=== PATIENT | female | born 1985 | race Two or more races ===

== ENCOUNTER 2017-09-21 18:41 | Emergency (ER) | payer MEDICAID ==
[~2017-09-21] VITALS: Ht 152.4 cm; Wt 43.1 kg
[~2017-09-21 18:41] MED LIST: IBUPROFEN600 MG ORAL; KEFLEX500 M1 GT
[2017-09-21 19:03] VITALS: BP 107/74
--- NOTE | 2017-09-21 19:44 | Emergency Room Report ---
History of Present Illness General Chief Complaint: Skin Rash/Abscess Source: Patient Present Illness HPI 32-year-old female presents to the emergency department complaining of 8 out of 10 in severity localized pain, swelling and erythema to the right side of the vaginal labia over the course of 2 days. Patient reports that she was seen at a clinic and was referred to the emergency department for evaluation. Patient states that initially she did not have any discharge however when she was at the clinic they stated that it appears that is currently draining. Patient denies fevers, chills. Pain is exacerbated upon palpation. She denies dysuria , other lesions in the vaginal area, swollen tender lymph nodes, joint pain. Patient denies history of STDs. Denies CP, Palpitations, LOC, AMS, dizziness, Changes in Vision, Sensation, paresthesias, or a sudden severe headache. She denies abdominal pain. She states she has been using hot compresses at home which she did not think was providing much relief. Allergies: Coded Allergies: NO KNOWN DRUG ALLERGIES (Unverified Allergy, Unknown, 09/10/14) Patient History Past Medical History: see triage record Past Surgical History: none Pertinent Family History: none Last Menstrual Period: 08/03/17 Now: No Immunizations: UTD Reviewed Nursing Documentation: PMH: Agreed; PSxH: Agreed Nursing Documentation-PMH Past Medical History: No Stated History Review of Systems All Other Systems: negative except mentioned in HPI Physical Exam Vital Signs Date Time Temp Pulse Resp B/P (MAP) Pulse Ox O2 Delivery O2 Flow Rate FiO2 09/21/17 18:51 99.6 108 16 107/74 97 Room Air 99.7 Sp02 EP Interpretation: reviewed, normal General Appearance: no apparent distress, alert, GCS 15, non-toxic Head: normocephalic, atraumatic Eyes: bilateral eye normal inspection, bilateral eye PERRL ENT: hearing grossly normal, normal voice Neck: full range of motion Respiratory: lungs clear, normal breath sounds, speaking full sentences Cardiovascular #1: regular rate, rhythm Gastrointestinal: non tender, soft Rectal: deferred Genitourinary: no CVA tenderness, adnexa normal, bladder normal, other - Vaginal abscess that is draining on its own, it is 2cm in size right lower labia. NO LAD Musculoskeletal: back normal, gait/station normal, normal range of motion, non- tender Neurologic: alert, oriented x3, responsive, motor strength/tone normal, sensory intact, speech normal, grossly normal Psychiatric: judgement/insight normal Skin: no rash, warm/dry, well hydrated, other - Vaginal abscess that is draining on its own, it is 2cm in size right lower labia Lymphatic: no adenopathy Medical Decision Making PA Attestation Dr. rodriguez is my supervising Physician whom patient management has been discussed with. Diagnostic Impression: Primary Impression: Discharging abscess of vagina ER Course 32-year-old female presents to the emergency department complaining of 8 out of 10 in severity localized pain, swelling and erythema to the right side of the vaginal labia over the course of 2 days. Patient reports that she was seen at a clinic and was referred to the emergency department for evaluation. Patient states that initially she did not have any discharge however when she was at the clinic they stated that it appears that is currently draining. Patient denies fevers, chills. Pain is exacerbated upon palpation. She denies dysuria , other lesions in the vaginal area, swollen tender lymph nodes, joint pain. Patient denies history of STDs. Denies CP, Palpitations, LOC, AMS, dizziness, Changes in Vision, Sensation, paresthesias, or a sudden severe headache. She denies abdominal pain. She states she has been using hot compresses at home which she did not think was providing much relief. Ddx considered but are not limited to cellulitis, abscess, Bartholin's cyst, STD just to name a few. Vital signs: are WNL, pt. is afebrile H&PE are most consistent with Vaginal abscess that is draining on its own, it is 2cm in size right lower labia. ORDERS: none required at this time, the diagnosis is clinical ED INTERVENTIONS: - D/w pt. that since it is Draining on its own it would be least invasive to put her on antibiotics and to continue warm compresses to facilitate the drainage. Discussed with patient that if she has worsening of her symptoms to return to the ED and at that point we will most likely consider incising. At this time it is fluctuant a very small it is not tense and I feel we can manage this conservatively with oral antibiotics and close outpatient follow-up. She verbalized her understanding and agreement with this treatment plan DISCHARGE: At this time pt. is stable for d/c to home. Will provide printed patient care instructions, and any necessary prescriptions. Care plan and follow up instructions have been discussed with the patient prior to discharge. Last Vital Signs Date Time Temp Pulse Resp B/P (MAP) Pulse Ox O2 Delivery O2 Flow Rate FiO2 09/21/17 19:03 99.7 106 16 107/74 97 Room Air 99.7 Disposition: HOME, SELF-CARE Condition: Stable Scripts Ibuprofen* (MOTRIN*) 600 Mg Tablet 600 MG ORAL THREE TIMES A DAY, #20 TAB 0 Refills Prov: Priscilla Kramer 09/21/17 Hydrocodone Bit/Acetaminophen 5-325* (NORCO 5-325*) 1 Each Tablet 1 TAB ORAL Q6H PRN for For Pain, #9 TAB 0 Refills Prov: Priscilla Kramre 09/21/17 Clindamycin Hcl (CLINDAMYCIN HCL) 300 Mg Capsule 300 MG ORAL FOUR TIMES A DAY for 7 Days, #28 CAP Prov: Priscilla Kramer 09/21/17 Referrals: [facility] (PCP) Patient Instructions: Abscess Additional Instructions: Take medications as directed. Follow up with a Primary Care Provider in 3-5 days, even if your symptoms have resolved. --Please review list of primary care clinics, if you do not already have a primary care provider Return sooner to ED if new symptoms occur, or current symptoms become worse. Do not drink alcohol, drive, or operate heavy machinery while taking [place] as this may cause drowsiness. - Please note that this Emergency Department Report was dictated using [email or web address] teacher technology software, occasionally this can lead to erroneous entry secondary to interpretation by the dictation equipment. Priscilla Kramer Sep 21, 2017 19:44
[2017-09-21] MEDS ORDERED: Fluconazole 100mg tab ORAL ONE (19:45)
[2017-09-21] MEDS ORDERED: Norco 5mg/325mg tab ORAL ONE (19:45)
[2017-09-21] MEDS ORDERED: IBUPROFEN600 MG ORAL (20:04)
[2017-09-21] MEDS ORDERED: CLINDAMYCIN HC300 MG ORAL (20:04)
[2017-09-21] MEDS ORDERED: NORCO 5-325 TA1 EACH ORAL (20:04)
[2017-09-21 20:30] VITALS: BP 112/70
[2017-09-21 20:31] VITALS: BP 112/70
== END 2017-09-21 20:31 | disposition home or self-care (01) ==
LOC: EMR 19:33
DX: N76.0 Acute vaginitis (principal)
CPT/HCPCS: 99284

== ENCOUNTER 2017-10-25 18:49 | Emergency (ER) | payer MEDICAID ==
[~2017-10-25] VITALS: Ht 152.4 cm; Wt 43.1 kg
[~2017-10-25 18:49] MED LIST changes: +CLINDAMYCIN HC300 MG ORAL; +NORCO 5-325 TA1 EACH ORAL
[2017-10-25] MEDS ORDERED: NKM (19:12)
[2017-10-25 19:26] VITALS: BP 117/63
--- NOTE | 2017-10-25 19:49 | Emergency Room Report ---
History of Present Illness General Chief Complaint: Abdominal Pain Source: Patient Present Illness HPI 32-year-old female patient presents ER complaining of diarrhea for the past 2 weeks. Patient reports diarrhea symptoms began following beginning to take under my syndrome abscess. Patient reports she also eats"lots of spicy foods" .. Patient denies fever, chest pain, abdominal pain. Patient denies recent travel outside states. Patient denies blood in stool. Patient denies contacts with similar symptoms. Patient denies vomiting. as dysuria, hematuria. Patient reports currently on menstrual period. patient also complains of cough, reports intermittent and dry. Denies hemoptysis. Denies history of asthma. Denies shortness of breath. reports has been able to eat without difficulty. Allergies: Coded Allergies: NO KNOWN DRUG ALLERGIES (Unverified Allergy, Unknown, 09/10/14) Patient History Past Medical History: see triage record Last Menstrual Period: now Now: No Reviewed Nursing Documentation: PMH: Agreed; PSxH: Agreed Nursing Documentation-PMH Past Medical History: No Stated History Review of Systems All Other Systems: negative except mentioned in HPI Physical Exam Vital Signs Date Time Temp Pulse Resp B/P (MAP) Pulse Ox O2 Delivery O2 Flow Rate FiO2 10/25/17 19:07 98.1 77 16 117/63 98 Room Air 98.1 Sp02 EP Interpretation: reviewed, normal General Appearance: well appearing, no apparent distress, alert, GCS 15, non- toxic Head: normocephalic, atraumatic Eyes: bilateral eye normal inspection, bilateral eye PERRL ENT: hearing grossly normal, normal pharynx, no angioedema, normal voice, uvula midline, moist mucus membranes Neck: full range of motion Respiratory: lungs clear, normal breath sounds, no rhonchi, no respiratory distress, no accessory muscle use, no wheezing, speaking full sentences Cardiovascular #1: regular rate, rhythm, no edema Gastrointestinal: non tender, soft, no mass, non-distended, no guarding, no rebound, other - negative Rovsing, negative obturator, negative Romano Genitourinary: no CVA tenderness Musculoskeletal: back normal, digits/nails normal, gait/station normal, normal range of motion, non-tender Neurologic: alert, oriented x3, responsive, motor strength/tone normal, sensory intact Psychiatric: mood/affect normal Medical Decision Making PA Attestation Dr. Love is my supervising Physician whom patient management has been discussed with. Diagnostic Impression: Primary Impression: Diarrhea Additional Impression: Cough ER Course Pt. presents to the ED c/o vomiting and diarrhea. Ddx considered but are not limited to viral syndrome, gastritis, enteritis, medication use. Vital signs: are WNL, pt. is afebrile at discharge. ORDERS: none required at this time, the diagnosis is clinical ED COURSE: physical exam benign, no tenderness palpation on distraction, negative Rovsing, negative Romano, negative obturator, negative heel tap. do not believe patient requires labs or imaging at this time. Patient informed symptoms likely related to recent antibiotic use. instructed patient to take probiotics and remain hydrated. Informed patient main concern with diarrhea is dehydration. No fever, no blood in stool, informed patient that she does not require further antibiotic treatment at this time for diarrhea, may worsen symptoms of diarrhea. No signs of dehydration, moist mucus membranes. Patient reports eating and drinking normally. ER precautions given, return ER for new or worsening of symptoms including but not limited to intractable vomiting, bloody diarrhea, chest pain, shortness of breath, abdominal pain follow-up with primary care provider and request referral to GI specialist. consult Dr. Love, agrees with treatment and plan. lungs clear to auscultation, no wheezes rhonchi or rales. Informed patient will provide her with cough medication, patient declined, medication at this time. Patient not, in ER. DISCHARGE: No rx required at this time. Patient instructed on BRAT diet. Patient instructed to remain hydrated, drink plenty of fluids. Patient questions asked and answered. Patient states understanding and agreement to treatment plan. At this time pt. is stable for d/c to home. Patient is resting comfortably, laughing, in no acute distress, nontoxic appearing, talking without difficulty. Will provide printed patient care instructions, and any necessary prescriptions. Care plan and follow up instructions have been discussed with the patient prior to discharge. Patient instructed to followup with PCP in 3-5 days. Patient reports understanding and agreement to treatment plan. Patient questions asked and answered. ER precautions given; patient instructed to return to ER for new or worsening of symptoms including but not limited to fever, intractable vomiting, severe abdominal pain, blood in stool. - Please note that this Emergency Department Report was dictated using [employer] professional technology software, occasionally this can lead to erroneous entry secondary to interpretation by the dictation equipment. Last Vital Signs Date Time Temp Pulse Resp B/P (MAP) Pulse Ox O2 Delivery O2 Flow Rate FiO2 10/25/17 19:26 98.1 77 16 117/63 98 Room Air 98.1 Disposition: HOME, SELF-CARE Condition: Stable Patient Instructions: Diarrhea, Adult, [id number] Additional Instructions: Followup with primary care provider in 3 -5 days. Request referral to GI specialist. Take probiotics. Avoid spicy foods, avoid dairy foods. BRAT diet: bananas, rice, apple sauce, toast. Take medications as directed. Patient questions asked and answered. ER precautions given, patient instructed to return to ER immediately for any new or worsening of symptoms cleaning but not limited to intractable vomiting, abdominal pain, chest pain, shortness breath. Kennedy Dickens October 25, 2017 19:49
[2017-10-25 19:54] VITALS: BP 117/63
== END 2017-10-25 19:54 | disposition home or self-care (01) ==
LOC: EMR 19:30
DX: R19.7 Diarrhea, unspecified (principal); R05 Cough
CPT/HCPCS: 99282

== ENCOUNTER 2018-03-11 12:44 | Emergency (ER) | payer MEDICAID ==
[~2018-03-11] VITALS: Ht 152.4 cm; Wt 44.9 kg
[~2018-03-11 12:44] MED LIST changes: +NKM
[2018-03-11] MEDS ORDERED: NAPROXEN SODIU220 M2 PO (12:59)
[2018-03-11 13:00] VITALS: BP 107/75
[2018-03-11] MEDS ORDERED: IBUPROFEN600 MG ORAL (13:38)
[2018-03-11] MEDS ORDERED: ROBAXIN-750750 MG PO (13:38)
[2018-03-11 13:54] VITALS: BP 109/73
--- NOTE | 2018-03-11 20:40 | Emergency Room Report ---
History of Present Illness General Chief Complaint: Pain Source: Patient Present Illness HPI To the patient is a 32-year-old female presenting for arm numbness. This occurred approximately 3 days prior. Numbness is primarily felt from the right shoulder to the right wrist. The symptoms have improved from the start. She has had this several times with unknown cause. She denies any injury. She does admit to sleeping with her right arm bent at an abnormal angle. She denies other symptoms including nausea, vomiting, fever, chills, shortness of breath, chest pain Allergies: Coded Allergies: NO KNOWN DRUG ALLERGIES (Unverified Allergy, Unknown, 09/10/14) Patient History Past Medical History: see triage record Pertinent Family History: none Now: No Reviewed Nursing Documentation: PMH: Agreed; PSxH: Agreed Nursing Documentation-PMH Past Medical History: No History, Except For Hx Cardiac Problems: No - anemia Review of Systems All Other Systems: negative except mentioned in HPI Physical Exam Vital Signs Date Time Temp Pulse Resp B/P (MAP) Pulse Ox O2 Delivery O2 Flow Rate FiO2 03/11/18 12:55 97.5 69 17 108/72 98 Room Air 97.5 Sp02 EP Interpretation: reviewed, normal General Appearance: no apparent distress, alert, GCS 15, non-toxic Head: normocephalic, atraumatic Eyes: bilateral eye normal inspection, bilateral eye PERRL Neck: normal inspection, no bony tend, tender lateral - R Musculoskeletal: normal inspection, digits/nails normal, normal range of motion Neurologic: alert, oriented x3, responsive, motor strength/tone normal, sensory intact, speech normal Psychiatric: judgement/insight normal, memory normal, mood/affect normal, no suicidal/homicidal ideation Skin: normal color, no rash, warm/dry, well hydrated Lymphatic: no adenopathy Medical Decision Making PA Attestation Dr. Maciel is my supervising physician. Patient management was discussed with my supervising physician Diagnostic Impression: Primary Impression: Muscle strain Additional Impression: Neuropathy ER Course To the patient is a 32-year-old female presenting for arm numbness. Differential diagnosis considered but not limited to: Muscle spasm, anxiety, disc herniation, ACS, among others PE: vitals WNL. NAD Neck: TTP over R lateral paraspinal muscles. No midline tenderness. Full AROM intact RRR. Lungs CTA bilat Upper ext strength 5/5 bilat. SILT EKG and CXR unremarkable. Pt is given prescription for muscle relaxer and pain med. Sleeping position discussed. F/U with PMD for further eval ISMAEL. ER precautions given Laboratory Tests Test 03/11/18 13:25 Urine HCG, Qualitative Negative (NEGATIVE) Lab Results Impression neg preg EKG Diagnostic Results EP Interpretation: NSR. No acute changes Rate: normal - 62 ST Segments: no acute changes ASA given to the pt in ED: No PA Scribe Text EKG reviewed with supervising physician Chest X-Ray Diagnostic Results Chest X-Ray Diagnostic Results : Chest X-Ray Ordered: Yes # of Views/Limited/Complete: 1 View Indication: Other - numbness EP Interpretation: Yes PA Xray: Interpretation reviewed, by supervising MD, and agrees with findings. Interpretation: no consolidation, no effusion, no pneumothorax, no acute cardiopulmonary disease Impression: No acute disease Electronically Signed by: Kaden Marshall PA-C Last Vital Signs Date Time Temp Pulse Resp B/P (MAP) Pulse Ox O2 Delivery O2 Flow Rate FiO2 03/11/18 12:55 97.5 69 17 108/72 98 Room Air 97.5 Status: improved Disposition: HOME, SELF-CARE Condition: Improved Scripts Methocarbamol* (ROBAXIN-750*) 750 Mg Tablet 750 MG PO TID, #21 TAB 0 Refills Prov: KADEN MARSHALLAJavier 03/11/18 Ibuprofen* (MOTRIN*) 600 Mg Tablet 600 MG ORAL Q8H PRN for For Pain, #30 TAB 0 Refills Prov: KADEN MARSHALL 03/11/18 Patient Instructions: Peripheral Neuropathy Additional Instructions: I discussed my findings with the patient. All questions and concerns have been answered. Treatment and medication compliance have been addressed. I advised the patient that they need to follow up with PMD in 3-5 days. Return to ED if symptoms worsen, new symptoms arise such as chest pain, or if needed for any reason. Patient verbalized understanding of discharge instructions. KADEN MARSHALL Mar 11, 2018 20:40
--- NOTE | 2018-03-12 10:57 | Diagnostic Imaging Report ---
Indication: Chest pain Comparison: None A single view chest radiograph was obtained. Findings: Cardiomediastinal appearance is within normal limits for age. The lungs are clear. Pulmonary vascularity is appropriate. The diaphragmatic contour is smooth and costophrenic angles are sharp. No pleural effusions are identified. The bones are unremarkable. Impression: No acute findings
--- NOTE | 2018-03-12 14:43 | Cardiology Report ---
APPROVED REPORT EKG Measurement Heart [id number] Normal sinus rhythm Normal ECG
== END 2018-03-11 13:54 | disposition home or self-care (01) ==
LOC: EMR 13:20
DX: S46.911A Strain of unspecified muscle, fascia and tendon at shoulder and upper arm level, right arm, initial encounter (principal); X58.XXXA Exposure to other specified factors, initial encounter; Y92.9 Unspecified place or not applicable; G62.9 Polyneuropathy, unspecified
CPT/HCPCS: 71045; 81025; 93005; 99283

== ENCOUNTER 2019-01-03 06:49 | Emergency (ER) | payer MEDICAID ==
[~2019-01-03] VITALS: Ht 152.4 cm; Wt 49.4 kg
[~2019-01-03 06:49] MED LIST changes: +NAPROXEN SODIU220 M2 PO; +ROBAXIN-750750 MG PO
[2019-01-03 07:10] VITALS: BP 105/56
--- NOTE | 2019-01-03 07:10 | NUR ---
ED Nurse Note: pt walked in to ED due to abdominal pain aw n/v/d since yesterday. per pt, no new drug or raw food intake. watery stool yesterday. no fever or chills reported. AAO x4. respirations even and non-labored noted. skin warm to touch. no open wound noted. on monitor technician. will wait for the further order.
--- NOTE | 2019-01-03 07:18 | Emergency Room Report ---
History of Present Illness General Chief Complaint: Nausea, Vomiting, and Diarrhea Source: Patient Present Illness HPI 33-year-old female presents with nausea vomiting, diarrhea, and abdominal cramps that started 5 days prior to arrival, she states the symptoms are improving however they continue to persist they started after she went out with some friends for mimosas in [place] she denies any fevers, she does endorse some chills, she endorses the pain is achy in nature, moderate severity diffuse abdominal cramps that come and go no aggravating or alleviating factors. Patient presents for evaluation Allergies: Coded Allergies: NO KNOWN DRUG ALLERGIES (Unverified Allergy, Unknown, 09/10/14) Patient History Past Medical History: see triage record Last Menstrual Period: 12/15/18 Now: No Reviewed Nursing Documentation: PMH: Agreed; PSxH: Agreed Nursing Documentation-PMH Past Medical History: No Stated History Hx Cardiac Problems: No - anemia Review of Systems Constitutional: Reports: chills; Denies: fever Eye: Denies: blurred vision, double vision ENT: Denies: throat pain, nasal discharge Respiratory: Denies: cough, shortness of breath Cardiovascular: Denies: chest pain, palpitations Gastrointestinal: Reports: abdominal pain, diarrhea, nausea, vomiting Genitourinary: Denies: dysuria, pain Musculoskeletal: Denies: back pain, muscle pain Skin: Denies: rash, lesions Neurological: Denies: headache, focal weakness Hematologic/Lymphatic: Denies: easy bleeding, easy bruising All Other Systems: negative except mentioned in HPI Physical Exam Vital Signs Date Time Temp Pulse Resp B/P (MAP) Pulse Ox O2 Delivery O2 Flow Rate FiO2 01/03/19 07:05 97.9 78 18 99/63 (75) 98 Room Air Sp02 EP Interpretation: reviewed, normal General Appearance: well appearing, no apparent distress, alert Head: normocephalic, atraumatic Eyes: bilateral eye PERRL, bilateral eye EOMI ENT: uvula midline, moist mucus membranes Neck: supple, thyroid normal, supple/symm/no masses Respiratory: lungs clear, no respiratory distress, no retraction, no accessory muscle use Cardiovascular #1: normal peripheral pulses, regular rate, rhythm, no edema, no gallop, no murmur Gastrointestinal: non tender, soft, no guarding, no rebound Musculoskeletal: normal inspection Neurologic: alert, oriented x3 Psychiatric: mood/affect normal Skin: no rash, warm/dry Medical Decision Making Diagnostic Impression: Primary Impression: Nausea, vomiting, and diarrhea Additional Impression: Abdominal pain ER Course 33-year-old female presents with 5 days of nausea vomiting and diarrhea, low suspicion for appendicitis, diverticulitis, high suspicion for infectious gastro enteritis, patient's abdomen is soft, nontender, no rebound no guarding, will order fluids, labs, to evaluate for severity of depletion patient is tolerating p.o. Patient with a contaminated urine, patient counseled patient, will call patient if urine turns positive. Disposition home with return precautions Laboratory Tests Test 01/03/19 07:41 White Blood Count 4.5 K/UL (4.8-10.8) L Red Blood Count 4.56 M/UL (4.20-5.40) Hemoglobin 13.8 G/DL (12.0-16.0) Hematocrit 40.6 % (37.0-47.0) Mean Corpuscular Volume 89 FL (80-99) Mean Corpuscular Hemoglobin 30.3 PG (27.0-31.0) Mean Corpuscular Hemoglobin Concent 34.0 G/DL (32.0-36.0) Red Cell Distribution Width 11.7 % (11.6-14.8) Platelet Count 98 K/UL (150-450) L Mean Platelet Volume 13.3 FL (6.5-10.1) H Neutrophils (%) (Auto) % (45.0-75.0) Lymphocytes (%) (Auto) % (20.0-45.0) Monocytes (%) (Auto) % (1.0-10.0) Eosinophils (%) (Auto) % (0.0-3.0) Basophils (%) (Auto) % (0.0-2.0) Neutrophils % (Manual) Pending Lymphocytes % (Manual) Pending Platelet Estimate Pending Platelet Morphology Pending Urine Color Pale yellow Urine Appearance Slightly cloudy Urine pH 6 (4.5-8.0) Urine Specific Felda 1.020 (1.005-1.035) Urine Protein 1+ (NEGATIVE) H Urine Glucose (UA) Negative (NEGATIVE) Urine Ketones Negative (NEGATIVE) Urine Blood 1+ (NEGATIVE) H Urine Nitrite Negative (NEGATIVE) Urine Bilirubin Negative (NEGATIVE) Urine Urobilinogen Normal MG/DL (0.0-1.0) Urine Leukocyte Esterase 3+ (NEGATIVE) H Urine RBC 2-4 /HPF (0 - 2) H Urine WBC Tntc /HPF (0 - 2) H Urine Squamous Epithelial Cells Many /LPF (NONE/OCC) H Urine Bacteria Few /HPF (NONE) Urine HCG, Qualitative Negative (NEGATIVE) Sodium Level 140 MMOL/L (136-145) Potassium Level 4.3 MMOL/L (3.5-5.1) Chloride Level 105 MMOL/L (98-107) Carbon Dioxide Level 31 MMOL/L (21-32) Anion Gap 4 mmol/L (5-15) L Blood Urea Nitrogen 12 mg/dL (7-18) Creatinine 0.9 MG/DL (0.55-1.30) Estimate Glomerular Filtration Rate > 60 mL/min (>60) Glucose Level 94 MG/DL (74-106) Calcium Level 8.8 MG/DL (8.5-10.1) Total Bilirubin 0.5 MG/DL (0.2-1.0) Aspartate Amino Transferase (AST) 22 U/L (15-37) Alanine Aminotransferase (ALT) 30 U/L (12-78) Alkaline Phosphatase 90 U/L (46-116) Total Protein 7.7 G/DL (6.4-8.2) Albumin 3.9 G/DL (3.4-5.0) Globulin 3.8 g/dL Albumin/Globulin Ratio 1.0 (1.0-2.7) Lipase 168 U/L (73-393) Human Chorionic Gonadotropin, Quant Pending Lab Results Impression Contaminated urine, will await culture results Rhythm Strip Diag. Results Rhythm Strip Time: 07:33 EP Interpretation: yes Rate: 64 Rhythm: NSR Last Vital Signs Date Time Temp Pulse Resp B/P (MAP) Pulse Ox O2 Delivery O2 Flow Rate FiO2 01/03/19 07:05 97.9 78 18 99/63 (75) 98 Room Air Disposition: HOME, SELF-CARE Condition: Improved Scripts Ondansetron Odt* (ZOFRAN ODT*) 4 Mg Tab.rapdis 4 MG BC EVERY 8 HOURS PRN for Nausea & Vomiting, #15 TAB 0 Refills Prov: Tito Purcell MD 01/03/19 Referrals: [facility]) [facility] Patient Instructions: Diarrhea, Adult, [id number], Rehydration, Adult, Thrombocytopenia, Iedy-[id number], Viral Gastroenteritis, Adult, [id number] Additional Instructions: The patient was provided with discharge instructions, notified to follow-up with a primary care doctor and or specialist in the next 24-48 hours, and to return to the ED if they have worsening of their symptoms. Please note that this report is being documented using [employer] technology. This can lead to erroneous entry secondary to incorrect interpretation by the dictating instrument. Tito Purcell MD Jan 03, 2019 07:18
[2019-01-03] MEDS ORDERED: Metoclopramide 10mg/2ml Inj IVP ONE (07:30)
[2019-01-03] MEDS ORDERED: Mylanta II UD 30ml ORAL ONE (07:30)
[2019-01-03] MEDS ORDERED: ONDANSETRON ODT4 MG BC (07:35)
[2019-01-03 08:07] LABS: APPEARANCE,URINE SLIGHTLY CLOUDY; BILIRUBIN, URINE NEGATIVE (NEGATIVE); COLOR,URINE PALE YELLOW; GLUCOSE, URINE (UA) NEGATIVE (NEGATIVE); KETONES,URINE NEGATIVE (NEGATIVE); LEUKOCYTE ESTERASE ,URINE 3+ (NEGATIVE); NITRITE,URINE NEGATIVE (NEGATIVE); PH,URINE 6 (4.5-8.0); PROTEIN,URINE 1+ (NEGATIVE); UROBILINOGEN,URINE NORMAL MG/DL (0.0-1.0)
[2019-01-03 08:12] LABS: ANION GAP 4 mmol/L (5-15); BLOOD UREA NITROGEN 12 mg/dL (7-18); CALCIUM 8.8 MG/DL (8.5-10.1); CARBON DIOXIDE 31 MMOL/L (21-32); CHLORIDE 105 MMOL/L (98-107); CREATININE 0.9 MG/DL (0.55-1.30); POTASSIUM 4.3 MMOL/L (3.5-5.1); SODIUM 140 MMOL/L (136-145)
[2019-01-03 08:16] LABS: HEMATOCRIT 40.6 % (37.0-47.0); HEMOGLOBIN 13.8 G/DL (12.0-16.0); MEAN CORPUSCULAR VOLUME 89 FL (80-99); PLATELET COUNT 98 K/UL (150-450); RED BLOOD COUNT 4.56 M/UL (4.20-5.40); RED CELL DISTRIBUTION WIDTH 11.7 % (11.6-14.8); WHITE BLOOD COUNT 4.5 K/UL (4.8-10.8)
[2019-01-03 08:28] LABS: ALANINE AMINOTRANSFERASE 30 U/L (12-78); ALBUMIN 3.9 G/DL (3.4-5.0); ALKALINE PHOSPHATASE 90 U/L (46-116); ASPARTATE AMINO TRANSFERASE 22 U/L (15-37); BILIRUBIN,TOTAL 0.5 MG/DL (0.2-1.0)
[2019-01-03 08:47] VITALS: BP 104/66
--- NOTE | 2019-01-03 08:48 | NUR ---
ER DISCHARGE NOTE: Patient is cleared to be discharged per ERMD, pt is aox4, on room air, with stable vital signs. pt was given dc and prescription instructions, pt was able to verbalize understanding, pt id band and iv site removed without complications. pt is able to ambulate with steady gait. pt took all belongings.
== END 2019-01-03 08:48 | disposition home or self-care (01) ==
LOC: EMR 07:13
DX: R11.2 Nausea with vomiting, unspecified (principal); R19.7 Diarrhea, unspecified; R10.9 Unspecified abdominal pain
CPT/HCPCS: 36415; 80053; 81003; 81025; 83690; 84702; 85007; 85025; 87086; 96361; 96374; 96375; 99284; J2765; S0028